=== PATIENT | female | born 2005 | race Two or more races ===

== ENCOUNTER 2024-09-12 01:26 | Emergency (ER) | payer MEDICAID, SELFPAY ==
[2024-09-12 01:27] VITALS: BMI 36.0
[2024-09-12 01:37] VITALS: BP 136/83; PULSE 93; RESP 17; TEMP 37.1; O2SAT 99
--- NOTE | 2024-09-12 01:54 | XR_ITS ---
Examination: PA chest single view TECHNIQUE: Upright PA chest single view Exam date and time: September 12, 2024 0214 hours INDICATIONS: Coughing 5 days. FINDINGS: Early pneumonia left upper lobe. Normal heart size Right lung clear IMPRESSION: Early pneumonia left upper lobe
--- NOTE | 2024-09-12 02:29 | EDNOTE_ITS ---
Upper Respiratory Inf. RME/HPI General Chief Complaint: Flu Like Symptoms Stated Complaint: COUGH, CONGESTION AND VOMITING Time Seen by Provider: 09/12/24 01:53 Arrival date/time: 09/12/24 01:26 18F with no significant PMH presents to ED with 4 days of cough, nasal congestion, and some N/V from coughing so much, particularly when she wakes up. Limitations: no limitations Related Data Home Medications ?Medication ?Instructions ?Recorded ?Confirmed vits no.124-ferrous fum 1 tab PO DAILY 03/01/23 27 mg iron-folic acid 800 mcg tablet ( Vitamin) Previous Rx's ?Medication ?Instructions ?Recorded acetaminophen 300 mg-codeine 15 mg 1 tab PO Q12H PRN p ain #14 tabs 03/04/23 tablet acetaminophen 500 mg tablet 500 mg PO Q6H PRN fever or pain 03/04/23 #20 tabs docusate sodium 100 mg capsule 100 mg PO QDAY #30 caps 03/04/23 (Laxa Basic) ibuprofen 800 mg tablet 800 mg PO Q8H PRN pain #30 t abs 03/04/23 Allergies Allergy/AdvReac Type Severity Reaction Status Date / Time No Known Allergies Allergy Verified 09/02/23 23:16 Review of Systems Review of Systems Systems Reviewed: All systems reviewed, normal except as documented Constitutional Constitutional: Reports system reviewed and no additional complaints, except as documented, Denies fever(s) and Denies headache(s) ENT Ears, Nose, Mouth, and Throat: Reports as per HPI, Denies disequilibrium, Denies headache(s) and Reports nasal congestion Cardiovascular Cardiovascular: Reports system reviewed and no additional complaints, except as documented, Denies chest pain and Denies dyspnea Respiratory Respiratory: Reports system reviewed and no additional complaints, except as documented, Reports as per HPI, Reports cough and Denies dyspnea Gastrointestinal Gastrointestinal: Reports system reviewed and no additional complaints, except as documented, Reports as per HPI, Denies abdominal pain, Reports nausea and Reports vomiting Neurologic Neurologic: Reports system reviewed and no additional complaints, except as documented, Denies confusion, Denies disequilibrium and Denies headache(s) Psychiatric Psychiatric: Denies confusion Past Medical History Past Medical History NEUROLOGIC: Negative Neurological Disorders or Seizures CARDIAC: Negative Cardiac Disorders or Congestive Heart Failure RESPIRATORY: Positive Asthma (SEASONAL ASTHMA, USES ALBUTEROL INHALOR Q 1 MO.); Negative Chronic Obstructive Pulmonary Disease (COPD) GASTROINTESTINAL: Negative Gastrointestinal Disorders or Hepatitis GENITOURINARY: Negative Genitourinary Disorders or Renal Disease REPRODUCTIVE: Negative Endometriosis, Genital Herpes, Gonorrhea, Pelvic Inflammatory Disease, Previous Pregnancies, Syphilis or Uterine Prolapse MUSCULOSKELETAL: Negative Musculoskeletal Disorders ENDOCRINE: Positive Endocrine Disorders; Negative Diabetes Mellitus Type 1 or Diabetes Mellitus Type 2 HEMATOLOGIC: Positive Blood Disorders and Anemia (HX OF ANEMIA, NOT CURRENT.); Negative Sickle Cell Disease OTHER HISTORY: Positive Hospitalization; Negative Autoimmune Disease, Down Syndrome, Developmental Delay, Shingles, Falls, Blood Transfusions, Blood Transfusion Reaction, Anesthesia Reactions, Organ Transplant, Chemotherapy, Radiation Therapy, Hyperbaric Therapy, MRSA, VRSA, Vancomycin-Resistant Enterococci, Human Immunodeficiency Virus (HIV), Chicken Pox, Measles, Mumps, Rubella (Persian Measles), Pertussis, Clostridium Difficile or Cancer Family History FAMILY HISTORY: Positive Family Cardiac Disorders (FATHER- HEART PROBLEMS. MOTHER- HTN); Negative Family Psychiatric Problems, Family Respiratory Disorders, Family Gastrointestinal Problems, Family Cancer, Family Surgery or Family Anesthesia Reaction Surgical History SURGICAL: Positive Abdominal Surgery; Negative Section or Organ Transplant Social History SMOKING STATUS: Never smoker SECOND HAND EXPOSURE: No SUBSTANCE USE: does not use ED Exam General Limitations: Present no limitations General appearance: Present alert and in no apparent distress Head Head exam: Present atraumatic Eye Eye exam: Present normal appearance, PERRL and EOMI ENT ENT exam: Present normal exam, normal oropharynx and mucous membranes moist Neck Neck exam: Present normal inspection, full ROM and trachea midline Chest Chest inspection: Present normal inspection and symmetric chest wall rise Respiratory Respiratory exam: Present normal lung sounds bilaterally Cardiovascular Cardiovascular exam: Present regular rate, normal rhythm and normal heart sounds Abdominal Exam Abdominal exam: Present soft and normal bowel sounds Extremities Exam Extremities exam: Present normal inspection and full ROM Back Exam Back exam: Present normal inspection and full ROM Neurological Exam Neurological exam: Present alert, oriented X3 and CN II-XII intact Psychiatric Psychiatric exam: Present normal affect and normal mood Skin Skin exam: Present warm, dry, intact and normal color Course Quality Measures none Orders Category Date Time Status Bedside Influenza A&B Antigen Test NOW Care 09/12/24 01:54 Completed XR chest 1V portable Stat Exams 09/12/24 01:54 Taken Vital Signs Vital signs: Vital Signs Temperature 98.8 F 09/12/24 01:37 Pulse Rate 93 09/12/24 01:37 Respiratory Rate 17 09/12/24 01:37 Blood Pressure 136/83 H 09/12/24 01:37 Pulse Oximetry (%) 99 09/12/24 01:37 Oxygen Delivery Method Room Air 09/12/24 01:37 O2 at 99% on RA and WNLs Upper Respiratory Infection MDM Narrative MDM Narrative:: 18F with no significant PMH presents to ED with 4 days of cough, nasal c ongestion, and some N/V from coughing so much, particularly when she wakes up. Physical exam reveals clear ENT and lungs. Patient is afebrile, calm, and alert. Swabs neg. Wet CXR read no PNA pending official report. Product Support Analyst given. Patient data External records reviewed:: [facility] previous records Clinical information provided by:: patient Social determinants that could affect healthcare access:: none Patient has the following chronic illnesses:: none How is presenting disease/condition affected by chronic disease/condition?: no chronic disease Evaluation data The following diagnostics were reviewed and interpreted by me:: lab results and radiology exam(s) Lab and/or radiology exams considered but not ordered:: ordered Interpretation Summary: above Medications / Prescriptions Medications or Prescriptions considered but not ordered:: not ordered Medication administrations:: n/a Consultations Consultation(s) initiated? (list below): No Diagnosis Upper Respiratory Differential Diagnosis: upper respiratory infection, croup, otitis media, sinusitis, viral infection, bronchitis, influenza, pharyngitis and other (CAP, respiratory infection) Most likely diagnosis given after review of the tests above:: respiratory infection Admission Indicated Admission indicated?: not indicated Admission Request Was there a request for admission?: No Disposition Plan Disposition Plan: Discharge Discharge Attestation Discharge Attestation: The patient and all family members were given an opportunity to ask questions and understood the discharge instructions. Discharge instructions specifically effects, indications for sooner follow up or return to the emergency department, and the expected course of current diagnosis. Patient condition: Stable Discharge Plan Plan Patient Disposition: HOME (Self Care) Discharge Disposition comment: Stable Prescriptions/Referrals Prescriptions/Med Rec: No Action Vitamin 27 mg iron- 800 mcg Tablet 1 tab PO DAILY acetaminophen-codeine 300-15 mg tablet 1 tab PO Q12H PRN (Reason: pain) Qty: 14 0RF ibuprofen 800 mg tablet 800 mg PO Q8H PRN (Reason: pain) Qty: 30 0RF acetaminophen 500 mg tablet 500 mg PO Q6H PRN (Reason: fever or pain) Qty: 20 0RF docusate sodium [Laxa Basic] 100 mg capsule 100 mg PO QDAY Qty: 30 0RF Problem List Clinical Impression: Acute respiratory infection Patient/Caregiver Discharge Instructions Education Materials: ED URI, Viral, No Abx (Adult) Additional Instructions: Please follow-up with PCP within 24-48 hours and return immediately if symptoms worsen. Ibuprofen/Tylenol can be used simultaneously for greater fever/pain control. Benadryl is good for cough, congestion, and sleep. Print Language: Yoruba Stand Alone Forms: Patient Portal Info Letter PA/EDITOR MAGAZINE Supervising Physician PA/EDITOR MAGAZINE Supervising Physician: Dr. Gipson
[2024-09-12 02:49] VITALS: BP 128/72; PULSE 76; RESP 16; TEMP 36.8; O2SAT 98
== END 2024-09-12 02:50 | disposition home or self-care (01) ==
LOC: SERX 02:44
PROVIDERS: Emergency Provider Emergency Medicine
DX: J98.8 Other specified respiratory disorders (principal)
CPT/HCPCS: 71045; 87400; 99283

== ENCOUNTER 2024-10-02 05:37 | Emergency (ER) | payer MEDICAID, SELFPAY ==
[2024-10-02 05:39] VITALS: BMI 36.0
[2024-10-02 06:08] VITALS: BP 123/77; PULSE 87; RESP 17; TEMP 37; O2SAT 99
--- NOTE | 2024-10-02 06:18 | EDNOTE_ITS ---
<Statement entered by Elena Sheets MD - 10/02/24 06:33> As co-signing physician, I was present and available for consult prn. I concur with the plan and care as documented by the midlevel provider. ED Ear RME/HPI General Chief complaint: Ear Stated complaint: EAR PAIN Time Seen by Provider: 10/02/24 06:16 Source: patient Arrival date/time: 10/02/24 05:37 18-year-old female with no known medical history presents to the emergency room with a chief complaint of left-sided ear pain and drainage x 2 days Mode of arrival: ambulatory Limitations: no limitations Related Data Home Medications ?Medication ?Instructions ?Recorded ?Confirmed vits no.124-ferrous fum 1 tab PO DAILY 03/01/23 27 mg iron-folic acid 800 mcg tablet ( Vitamin) Previous Rx's ?Medication ?Instructions ?Recorded acetaminophen 300 mg-codeine 15 mg 1 tab PO Q12H PRN p ain #14 tabs 03/04/23 tablet acetaminophen 500 mg tablet 500 mg PO Q6H PRN fever or pain 03/04/23 #20 tabs docusate sodium 100 mg capsule 100 mg PO QDAY #30 caps 03/04/23 (Laxa Basic) ibuprofen 800 mg tablet 800 mg PO Q8H PRN pain #30 t abs 03/04/23 amoxicillin 875 mg-potassium 1 tab PO BID 7 days #14 t abs 10/02/24 clavulanate 125 mg tablet ofloxacin 0.3 % ear drops 5 drp otic (ear) QDAY 7 days #5 mL 10/02/24 Allergies Allergy/AdvReac Type Severity Reaction Status Date / Time No Known Allergies Allergy Verified 10/02/24 05:43 Review of Systems Review of Systems Systems Reviewed: All systems reviewed, normal except as documented Constitutional Constitutional: Reports system reviewed and no additional complaints, except as documented, Denies fatigue, Denies fever(s), Denies headache(s) and Denies weakness Eyes Eyes: Reports system reviewed and no additional complaints, except as documented, Denies blurry vision and Denies change in vision ENT Ears, Nose, Mouth, and Throat: Reports system reviewed and no additional complaints, except as documented, Reports ear discharge, Reports otalgia, Denies headache(s), Denies nasal congestion, Denies throat swelling and Denies vertigo Cardiovascular Cardiovascular: Reports system reviewed and no additional complaints, except as documented, Denies chest pain, Denies dyspnea and Denies dyspnea on exertion Respiratory Respiratory: Reports system reviewed and no additional complaints, except as documented, Denies chest congestion, Denies cough, Denies dyspnea, Denies dyspnea on exertion and Denies wheezing Gastrointestinal Gastrointestinal: Reports system reviewed and no additional complaints, except as documented, Denies abdominal pain, Denies cramping, Denies nausea and Denies vomiting Genitourinary Genitourinary: Reports system reviewed and no additional complaints, except as documented Musculoskeletal Musculoskeletal: Reports system reviewed and no additional complaints, except as documented and Denies back pain Integumentary/Breasts Skin/Breast: Reports system reviewed and no additional complaints, except as documented and Denies wounds Neurologic Neurologic: Reports system reviewed and no additional complaints, except as documented, Denies confusion, Denies headache(s), Denies lack of coordination, Denies vertigo and Denies weakness Psychiatric Psychiatric: Reports system reviewed and no additional complaints, except as documented, Denies anxiety, Denies confusion, Denies depression, Denies paranoia, Denies suicidal ideation and Denies tactile hallucinations Endocrine Endocrine: Reports system reviewed and no additional complaints, except as documented and Denies fatigue Hematologic/Lymphatic Hematologic/Lymphatic: Reports system reviewed and no additional complaints, except as documented and Denies lymphadenopathy Allergic/Immunologic Allergic/Immunologic: Reports system reviewed and no additional complaints, except as documented, Denies throat swelling, Denies urticaria and Denies wheezing Past Medical History Past Medical History NEUROLOGIC: Negative Neurological Disorders or Seizures CARDIAC: Negative Cardiac Disorders or Congestive Heart Failure RESPIRATORY: Positive Asthma; Negative Chronic Obstructive Pulmonary Disease (COPD) GASTROINTESTINAL: Negative Gastrointestinal Disorders or Hepatitis GENITOURINARY: Negative Genitourinary Disorders or Renal Disease REPRODUCTIVE: Negative Endometriosis, Genital Herpes, Gonorrhea, Pelvic Inflammatory Disease, Previous Pregnancies, Syphilis or Uterine Prolapse MUSCULOSKELETAL: Negative Musculoskeletal Disorders ENDOCRINE: Positive Endocrine Disorders; Negative Diabetes Mellitus Type 1 or Diabetes Mellitus Type 2 HEMATOLOGIC: Positive Blood Disorders and Anemia; Negative Sickle Cell Disease OTHER HISTORY: Positive Hospitalization; Negative Autoimmune Disease, Down Syndrome, Developmental Delay, Shingles, Falls, Blood Transfusions, Blood Transfusion Reaction, Anesthesia Reactions, Organ Transplant, Chemotherapy, Radiation Therapy, Hyperbaric Therapy, MRSA, VRSA, Vancomycin-Resistant Enterococci, Human Immunodeficiency Virus (HIV), Chicken Pox, Measles, Mumps, Rubella (Albanian Measles), Pertussis, Clostridium Difficile or Cancer Family History FAMILY HISTORY: Positive Family Cardiac Disorders; Negative Family Psychiatric Problems, Family Respiratory Disorders, Family Gastrointestinal Problems, Family Cancer, Family Surgery or Family Anesthesia Reaction Surgical History SURGICAL: Positive Abdominal Surgery; Negative Section or Organ Transplant Social History SMOKING STATUS: Never smoker SECOND HAND EXPOSURE: No SUBSTANCE USE: does not use ED Exam General Limitations: Present no limitations General appearance: Present alert and in no apparent distress Head Head exam: Present atraumatic Eye Eye exam: Present normal appearance, PERRL and EOMI ENT ENT exam: Present normal exam, normal oropharynx and mucous membranes moist Expanded ENT Exam External ear exam: Present external tenderness TM/Canal exam: Left TM: erythema and bulging Neck Neck exam: Present normal inspection, full ROM and trachea midline Chest Chest inspection: Present normal inspection and symmetric chest wall rise Respiratory Respiratory exam: Present normal lung sounds bilaterally Cardiovascular Cardiovascular exam: Present regular rate, normal rhythm and normal heart sounds Abdominal Exam Abdominal exam: Present soft and normal bowel sounds Extremities Exam Extremities exam: Present normal inspection and full ROM Back Exam Back exam: Present normal inspection and full ROM Neurological Exam Neurological exam: Present alert, oriented X3 and CN II-XII intact Psychiatric Psychiatric exam: Present normal affect and normal mood Skin Skin exam: Present warm, dry, intact and normal color Course Quality Measures none Vital Signs Vital signs: Vital Signs Temperature 98.6 F 10/02/24 06:08 Pulse Rate 87 10/02/24 06:08 Respiratory Rate 17 10/02/24 06:08 Blood Pressure 123/77 10/02/24 06:08 Pulse Oximetry (%) 99 10/02/24 06:08 Oxygen Delivery Method Room Air 10/02/24 06:08 O2 saturation 99% within normal limits Ear MDM Narrative MDM Narrative:: 18-year-old female with no known medical history presents to the emergency room with a chief complaint of left-sided ear pain and drainage x 2 days Patient is hemodynamically stable and in no apparent distress Physical examination shows an erythemic bulging left-sided tympanic membrane. There is also external ear canal tenderness and you can see dried discharge in the ear canal. Findings are consistent with otitis media and otitis externa. Antibiotics are sent to the patient's pharmacy Patient was discharged and educated to follow-up with primary care provider in the next 24 to 48 hours and return to the emergency room for any evidence of worsening signs or symptoms Patient data External records reviewed:: [facility] previous records Clinical information provided by:: patient Social determinants that could affect healthcare access:: none Patient has the following chronic illnesses:: No chronic illness How is presenting disease/condition affected by chronic disease/condition?: no chronic disease Evaluation data The following diagnostics were reviewed and interpreted by me:: lab results and radiology exam(s) Lab and/or radiology exams considered but not ordered:: Labs and radiology exams considered and ordered Interpretation Summary: N/A Medications / Prescriptions Medications or Prescriptions considered but not ordered:: Rx given Medication administrations:: Rx given Consultations Consultation(s) initiated? (list below): No Diagnosis Ear Differential Diagnosis: otitis externa, otitis media and ruptured TM Most likely diagnosis given after review of the tests above:: Otitis media Admission Indicated Admission indicated?: not indicated Admission Request Was there a request for admission?: No Disposition Plan Disposition Plan: Discharge Discharge Attestation Discharge Attestation: The patient and all family members were given an opportunity to ask questions and understood the discharge instructions. Discharge instructions specifically effects, indications for sooner follow up or return to the emergency department, and the expected course of current diagnosis. Patient condition: Stable Discharge Plan Plan Patient Disposition: HOME (Self Care) Discharge Disposition comment: stable Prescriptions/Referrals Prescriptions/Med Rec: New amoxicillin-pot clavulanate 875-125 mg tablet 1 tab PO BID 7 Days Qty: 14 0RF ofloxacin 0.3 % drops 5 drp otic (ear) QDAY 7 Days Qty: 5 0RF No Action Vitamin 27 mg iron- 800 mcg Tablet 1 tab PO DAILY acetaminophen-codeine 300-15 mg tablet 1 tab PO Q12H PRN (Reason: pain) Qty: 14 0RF ibuprofen 800 mg tablet 800 mg PO Q8H PRN (Reason: pain) Qty: 30 0RF acetaminophen 500 mg tablet 500 mg PO Q6H PRN (Reason: fever or pain) Qty: 20 0RF docusate sodium [Laxa Basic] 100 mg capsule 100 mg PO QDAY Qty: 30 0RF Problem List Clinical Impression: Otitis media Patient/Caregiver Discharge Instructions Education Materials: ED Otitis Media Antibiotic ... Additional Instructions: Please follow-up with your primary care provider in the next 24 to 48 hours Antibiotics are sent to your pharmacy please pick them up and take them as indicated For any evidence of worsening signs or symptoms return to the emergency room immediately Print Language: Georgian Stand Alone Forms: [employer] Award Info., Work/School Release, Patient Portal Info Letter PA/REPORT MANAGER Supervising Physician PA/REPORT MANAGER Supervising Physician: Dr. SHEETS
== END 2024-10-02 06:30 | disposition home or self-care (01) ==
LOC: SERX 06:28
PROVIDERS: Emergency Provider Emergency Medicine; PCP Family Medicine
DX: H66.92 Otitis media, unspecified, left ear (principal)
CPT/HCPCS: 99281

== ENCOUNTER 2025-02-18 21:48 | Emergency (ER) | payer MEDICAID, SELFPAY ==
[2025-02-18 21:50] VITALS: BMI 39.1
[2025-02-18 22:01] VITALS: BP 124/82; PULSE 86; RESP 20; TEMP 36.7; O2SAT 98
--- NOTE | 2025-02-18 22:02 | XR_ITS ---
Examination: CT brain head without contrast. 2-D sagittal coronal reconstructions Date and time of exam: February 18, 2025, 11:17 p.m. INDICATIONS: Head pressure nausea and dizziness beginning 3 days ago CTDI: vol (mGy): 54.20 DLP: (mGycm): 1046 Technique: Multiple CT axial sections of the brain have been obtained, 5 mm slice thickness. Contrast has not been administered. 2-D sagittal, coronal reconstructions have been obtained Low dose protocols were performed. One or more of the following dose reduction techniques were used; automated exposure control, adjustment of the mA and/or KV according to patient size, use of iterative reconstruction technique. Findings: No significant ventricular enlargement. Intra-axial or extra-axial hemorrhage density is not seen. No mass effect or midline shift Basal cisterns are not remarkable. Fourth ventricle is midline. Cranial vault intact. Chronic pansinusitis Impression: Negative for acute hemorrhage, mass effect or midline shift Advise clinical correlation and follow-up accordingly
--- NOTE | 2025-02-18 22:02 | PD.EDRME ---
Rapid Medical Screening Exam RME Arrival date/time: 02/18/25 21:48 This is a case of 19-year-old female with no medical history came into the emergency room due to dizziness headache and numbness with nausea today persistence of the symptoms this patient decided to start consult with the emergency room Chief Complaint: General Adult/Misc Complain Time Seen by Provider: 02/18/25 21:50
[2025-02-18 22:28] LABS: Basophils # (Auto) 0.1 Thou/mm3 (0.0-0.2); Basophils % (Auto) 1 % (0-2.5); Eosinophils # (Auto) 0.2 Thou/mm3 (0.0-0.5); Eosinophils % (Auto) 2 % (0-10); Hematocrit 36.5 % (36.0-46.0); Hemoglobin 11.1 g/dL (12.0-16.0); Immature Granulocytes Auto 0.02 Thou/mm3 (0.00-0.00); Lymphocytes # (Auto) 2.5 Thou/mm3 (1.0-4.8); Lymphocytes % (Auto) 28 % (10-50); Mean Corpuscular HGB Conc 30.4 g/dl (31.0-37.0); Mean Corpuscular Hemoglobin 23.2 pg (25.0-35.0); Mean Corpuscular Volume 76 fL (80-100); Monocytes # (Auto) 0.7 Thou/mm3 (0.0-0.8); Monocytes % (Auto) 8 % (0-12); Neutrophils # (Auto) 5.4 Thou/mm3 (1.8-7.7); Neutrophils % (Auto) 61 % (37-80); Nucleated Red Blood Cell # 0.00 Thou/mm3 (0.00-0.00); Nucleated Red Blood Cell % 0 /100 WBC (0); Platelet Count 332 Thou/mm3 (140-440); RDW Standard Deviation 42.1 fL (36.4-46.3); Red Blood Count 4.79 Miln/mm3 (4.00-5.20); White Blood Count 8.9 Thou/mm3 (3.6-11.0)
--- NOTE | 2025-02-18 22:49 | EKG_ITS ---
[facility] Test Date: 2025-02-18 Pat Name: RICH MEANS Department: Room: - Gender: Female Art Consultant: : 2005 Requested By: Fahad Lao Order Number: [id number] Reading MD: Fahad Lao Measurements Intervals [place] Rate: 76 P: 30 [place]: 133 QRS: 72 QRSD: 90 T: 41 QT: 349 QTc: 393 Interpretive Statements SINUS RHYTHM No previous ECG available for comparison /store/S0/[id number]
[2025-02-18 22:50] LABS: HCG,Qualitative Serum Negative
[2025-02-18 22:55] VITALS: BP 126/64; PULSE 86; RESP 23; TEMP 36.9; O2SAT 99
[2025-02-18 22:58] LABS: Alanine Aminotransferase 10 U/L (10-49); Albumin, Serum 4.6 gm/dL (3.5-5.0); Albumin/Globulin Ratio 1.8 (1.2-2.2); Alkaline Phosphatase 58 U/L (46-116); Anion Gap 9 (7-16); Aspartate Amino Transferase 13 U/L (0-34); BUN/Creatinine Ratio 16 Ratio (12-20); Bilirubin,Total 0.3 mg/dL (0.3-1.2); Blood Urea Nitrogen 11 mg/dL (9-23); Calcium 9.2 mg/dL (8.3-10.6); Calcium (Corrected) 9.2 mg/dL (8.5-10.1); Carbon Dioxide 27.7 mMol/L (20.0-31.0); Chloride 106 mMol/L (98-107); Creatinine (Component) 0.7 mg/dL (0.6-1.3); Estimated Creatinine Clearance 165.2 mL/min (>60); Globulin 2.5 gm/dL (2.3-3.5); Glucose 93 mg/dL (74-106); Osmolality,Calculated 284 (275-295); Potassium 4.1 mMol/L (3.4-5.1); Sodium 143 mMol/L (136-145); Total Protein 7.1 gm/dL (5.7-8.2); eGFR > 60 See Note
--- NOTE | 2025-02-18 23:46 | PD.EDHA ---
ED Headache RME/HPI General Chief Complaint: General Adult/Misc Complain Stated Complaint: DIZZY,HEAD PRESSURE, NAUSEA Time Seen by Provider: 02/18/25 21:50 Arrival date/time: 02/18/25 21:48 RME / HPI RME / HPI Narrative: 02/18/25 21:48 This is a case of 19-year-old female with no medical history came into the emergency r DR. NEAL MAIN ED EVALUATION: Patient presents with new onset occipital BL posterior parietal ZAMORA pressure-like sensation today constant in nature with nausea, lightheadedness, and blurred vision. Also noted LUE/LLE parasthesias. Nausea without emesis, no change with exertion. PMH: DM on Ozempic PSH: Appendectomy, Allergies: None reported Social: Non-drinker, Non-smoker, No illicit drug abuse MD Complaint: headache Location: occipital Quality: constant Exacerbating factors: none Associated symptoms: nausea Related Data Home Medications ?Medication ?Instructions ?Recorded ?Confirmed vits no.124-ferrous fum 1 tab PO DAILY 02/28/23 03/01/23 27 mg iron-folic acid 800 mcg tablet ( Vitamin) Previous Rx's ?Medication ?Instructions ?Recorded acetaminophen 300 mg-codeine 15 mg 1 tab PO Q12H PRN pain #14 tabs 03/04/23 tablet acetaminophen 500 mg tablet 500 mg PO Q6H PRN fever or pain 03/04/23 #20 tabs docusate sodium 100 mg capsule 100 mg PO QDAY #30 caps 03/04/23 (Laxa Basic) ibuprofen 800 mg tablet 800 mg PO Q8H PRN pain #30 tabs 03/04/23 promethazine 12.5 mg tablet 12.5 mg PO TID PRN nausea and 02/19/25 vomiting #20 tabs Allergies Allergy/AdvReac Type Severity Reaction Status Date / Time No Known Allergies Allergy Verified 10/02/24 05:43 Review of Systems Review of Systems Systems Reviewed: All systems reviewed, normal except as documented Past Medical History Past Medical History RESPIRATORY: Positive Asthma ENDOCRINE: Positive Endocrine Disorders and Diabetes Mellitus Type 2 HEMATOLOGIC: Positive Anemia OTHER HISTORY: Positive Hospitalization Family History FAMILY HISTORY: Positive Family Cardiac Disorders Surgical History SURGICAL: Positive Abdominal Surgery ED Exam Narrative Physical exam: GEN. APPEARANCE: The patient is alert awake oriented X-3 under mild distress c/o mild intensity ZAMORA, lying down comfortably, does not look ill/toxic. Patient has good eye contact. Patient is cooperative. VITALS: All vitals were reviewed and the pulse ox is 99%, which is normal according to my interpretation HEENT: Normocephalic, atraumatic, noted alodynia and tender occipital notch BL. Pupils are equal and reactive; fundoscopic exam normal. Oral mucosa is moist. NECK: Supple, nontender, no meningismus, no JVD. There is no thyromegaly and no lymphadenopathy. CHEST: Nontender on palpation no deformity and no crepitus. CARDIOVASCULAR: Heart regular rhythm, no murmur or gallop rub or extra beats. LUNGS: Clear to auscultation bilaterally with symmetrical chest rise. No laboring tachypnea or wheezing. No intercostal subcostal retraction. No rales and no rhonchi. ABDOMEN: Soft, flat, nontender to palpation, no guarding or rebound tenderness. There are no abnormal masses palpated. No pulsatile masses or bruits. Active and normal bowel sounds. EXTREMITIES:.Normal inspection and palpation. No edema. No cyanosis. Patient is able to move all 4 extremities well SKIN: Warm and dry, no rashes noted. MUSCULOSKELETAL: No lumbar or midline bony tenderness. There is no CVA tenderness. No paraspinal muscle spasm or tenderness. NEURO: Cranial nerves II through XII grossly intact. There are no focal neurologic deficits noted. GCS is 15. Normal finger to nose, gait not observed. PSYCHIATRIC: Patient is in normal mood and affect, cooperative. LYMPHATICS: No major lymphadenopathy noted. Course Quality Measures none Orders Category Date Time Status Bedside Blood Glucose NOW Care 02/18/25 22:52 Active EKG (ED ONLY) *Do not use* NOW Care 02/18/25 22:[address] head/brain wo con Stat Exams 02/18/25 22:02 Completed EKG (ED Only) Stat Exams 02/18/25 22:49 Draft CBC Stat Lab 02/18/25 22:16 Completed CMP [Comprehensive Metabolic Panel] Stat Lab 02/18/25 22:16 Completed HCG,Qualitative Serum Stat Lab 02/18/25 22:16 Completed Urinalysis Stat Lab 02/19/25 01:12 Completed Urine Culture Stat Lab 02/19/25 01:12 Received Ampicillin/Sulbac Inj [Unasyn Inj] 3 gm Med 02/19/25 00:47 Discontinued Sodium Chloride 0.9% (Pop) [NS 0.9% mini bag] 100 ml IV X1 Dexamethasone Inj [Decadron Inj] 10 mg Med 02/18/25 23:53 Discontinued Sodium Chloride 0.9% [Ns] 100 ml IV X1 DiphenhydrAMINE INJ [Benadryl Inj] Med 02/18/25 23:54 Discontinued 12.5 mg IVP X1 ONE Morphine* Inj Med 02/18/25 23:54 Discontinued 4 mg IVP X1 ONE Prochlorperazine Inj [Compazine Inj] Med 02/18/25 23:53 Discontinued 5 mg IV X1 ONE Sodium Chloride 0.9% 1000 ml [Ns] 1,000 ml Med 02/18/25 23:53 Discontinued IV 999 mls/hr Vital Signs Vital signs: Vital Signs Temperature 98.1 F 02/18/25 22:01 Pulse Rate 86 02/18/25 22:01 Respiratory Rate 20 02/18/25 22:01 Blood Pressure 124/82 02/18/25 22:01 Pulse Oximetry (%) 98 02/18/25 22:01 Oxygen Delivery Method Room Air 02/18/25 22:01 Headache MDM Narrative MDM Narrative:: Scribe Attestation: Joslyn Garcia, am scribing for and in the presence of Dr. Neal. Provider Notation: Although this document has been carefully reviewed, there may still be some phonetic and other typographical errors. These errors are purely grammatical due to imperfections in the software program and should not be construed in any way to compromise the substance of the patient's medical care during this visit. Patient presents with new onset occipital BL posterior parietal ZAMORA pressure-like sensation today constant in nature with nausea, lightheadedness, and blurred vision. Also noted LUE/LLE parasthesias. Please see PE findings. Laboratory markers including CBC and serum chemistries demonstrate normal WBC of 8.9, hemoglobin of 11, and platelet count of 33. No left shift or bandemia. Serum chemistries essentially normal. test negative. UA with equivocal infection. Patient placed on cardiac surgeon, IV established, administered low-dose narcotic analgesics, IV steroids, and phenothiazines with marked improvement. Head and brain CT failed to demonstrate acute intracranial process. Upon serial evaluation, patient resting comfortably, neurologically intact, and reported headache resolved. Patient remained neurologically intact throughout ED course, and considered stable for discharge. Suspect complex migraine headache and after extended period of observation, patient will be discharged home. Patient data External records reviewed:: [facility] previous records (Reviewed prior ED records from 10/02/24. Patient was seen for Otitis media.) Clinical information provided by:: patient Social determinants that could affect healthcare access:: none Patient has the following chronic illnesses:: Type II DM, Asthma, Anemia How is presenting disease/condition affected by chronic disease/condition?: exacerbated by Evaluation data The following diagnostics were reviewed and interpreted by me:: lab results, radiology exam(s) and EKG tracing(s) (EKG at 22:59 shows normal sinus rhythm at 76, normal axis, no ectopy, no signs of acute ischemia, per my interpretation.) Lab and/or radiology exams considered but not ordered:: None Interpretation Summary: RADIOLOGY Head/Brain CT: Findings: No significant ventricular enlargement. Intra-axial or extra-axial hemorrhage density is not seen. No mass effect or midline shift Basal cisterns are not remarkable. Fourth ventricle is midline. Cranial vault intact. Chronic pansinusitis Impression: Negative for acute hemorrhage, mass effect or midline shift Advise clinical correlation and follow-up accordingly Medications / Prescriptions Medications or Prescriptions considered but not ordered:: None Medication administrations:: Medication Administration History Discontinued Medications Diphenhydramine HCl (Diphenhydramine Inj 50 Mg/Ml Vial) 12.5 mg IVP X1 ONE Stop: 02/18/25 23:55 Last Admin: 02/19/25 00:05 Dose: 12.5 mg Documented By: ALAINA Sodium Chloride (Ns) 1,000 mls @ 999 mls/hr IV .Q1H1M ONE Stop: 02/19/25 00:53 Last Infusion: 02/19/25 01:20 Dose: Infused Documented By: Admin: 02/19/25 00:07 Dose: 999 mls/hr Documented By: ALAINA Dexamethasone Sodium Phosphate (10 mg/ Sodium Chloride) 101 mls @ 101 mls/hr IV X1 ONE Stop: 02/18/25 23:54 Last Infusion: 02/19/25 01:03 Dose: Infused Documented By: Admin: 02/19/25 00:03 Dose: 101 mls/hr Documented By: ALAINA Ampicillin Sodium/Sulbactam (Sodium 3 gm/ Sodium Chloride) 100 mls @ 200 mls/hr IV X1 ONE Stop: 02/19/25 00:48 Last Infusion: 02/19/25 01:55 Dose: Infused Documented By: Admin: 02/19/25 01:21 Dose: 200 mls/hr Documented By: ALAINA Morphine Sulfate (Morphine Sulf Inj 4 Mg/Ml Vial) 4 mg IVP X1 ONE Stop: 02/18/25 23:55 Last Admin: 02/19/25 00:03 Dose: 4 mg Documented By: ALAINA Prochlorperazine Edisylate (Prochlorperazine Inj 5 Mg/Ml Vial 2 Ml) 5 mg IV X1 ONE; Protocol Stop: 02/18/25 23:54 Last Admin: 02/19/25 00:08 Dose: 5 mg Documented By: ALAINA See above if any Consultations Consultation(s) initiated? (list below): No Diagnosis Differential diagnosis headache: migraine, tension headache, subarachnoid hemorrhage, headache and sinusitis Most likely diagnosis given after review of the tests above:: Complex migraine headache Admission Indicated Admission indicated?: not indicated Explain why admission is indicated or not indicated:: Patient does not meet admission criteria Admission Request Was there a request for admission?: No Disposition Plan Disposition Plan: Discharge Discharge Attestation Discharge Attestation: The patient and all family members were given an opportunity to ask questions and understood the discharge instructions. Discharge instructions specifically effects, indications for sooner follow up or return to the emergency department, and the expected course of current diagnosis. Patient condition: Stable Discharge Plan Plan Patient Disposition: HOME (Self Care) Prescriptions/Referrals Prescriptions/Med Rec: No Action Vitamin 27 mg iron- 800 mcg Tablet 1 tab PO DAILY acetaminophen-codeine 300-15 mg tablet 1 tab PO Q12H PRN (Reason: pain) Qty: 14 0RF ibuprofen 800 mg tablet 800 mg PO Q8H PRN (Reason: pain) Qty: 30 0RF acetaminophen 500 mg tablet 500 mg PO Q6H PRN (Reason: fever or pain) Qty: 20 0RF docusate sodium [Laxa Basic] 100 mg capsule 100 mg PO QDAY Qty: 30 0RF Referrals: Jasvir Yañez MD [Primary Care Provider, Family Practice] - In 1 week Problem List Clinical Impression: Migraine headache Patient/Caregiver Discharge Instructions Print Language: Israeli Stand Alone Forms: [place] Award Info., Patient Portal Info Letter
[2025-02-19] MEDS: DEXAMETHASONE INJ 10 MG in SODIUM CHLORIDE 0.9% 100 ML 101 MG IV (00:03)
[2025-02-19] MEDS: MORPHINE SULF INJ 4 MG/ML VIAL IVP (00:03)
[2025-02-19] MEDS: SODIUM CHLORIDE 0.9% 1000 ML 1,000 ML 999 ML IV (00:07)
[2025-02-19] MEDS: PROCHLORPERAZINE INJ 5 MG/ML VIAL 2 ML IV (00:08)
[2025-02-19 01:18] LABS: Collection Type, Urine Clean Catch
[2025-02-19] MEDS: AMPICILLIN/SULBAC INJ 3 GM in SODIUM CHLORIDE 0.9% (POP) 100 ML IV (01:21)
[2025-02-19 01:31] VITALS: BP 126/64; PULSE 66; RESP 14; TEMP 36.9; O2SAT 97
[2025-02-19 01:42] LABS: Bacteria,Urine Rare; Bilirubin,Urine Negative (Negative); Blood,Urine Negative (Negative); Clarity,Urine Clear (Clear/Hazy); Color,Urine Lt-Yellow (Lt Yel-Yel); Glucose, Urine Negative (Negative); Ketones,Urine Negative (Negative); Leukocyte Esterase,Urine Positive (Negative); Nitrite,Urine Negative (Negative); PH,Urine 6.5 (5.0-7.0); Protein,Urine Negative (Neg - Trace); RBC,Urine 1 /hpf (0-3); Specific Gravity,Urine 1.020 (1.001-1.035); Squamous Epithelial Cell,Urine 5 /hpf (0-5); Urobilinogen,Urine Negative mg/dL (0.0-1.0); WBC,Urine 10 /hpf (0-5)
[2025-02-19 02:36] VITALS: BP 132/80; PULSE 81; RESP 16; TEMP 36.4; O2SAT 96
[2025-02-19 02:47] VITALS: BP 132/80; PULSE 87; RESP 16; O2SAT 96
== END 2025-02-19 02:49 | disposition home or self-care (01) ==
PROVIDERS: Nurse Practitioner Family; Emergency Provider Emergency Medicine; PCP Family Medicine
DX: G43.909 Migraine, unspecified, not intractable, without status migrainosus (principal); C83.70 Burkitt lymphoma, unspecified site; E11.9 Type 2 diabetes mellitus without complications
CPT/HCPCS: 36415; 70450; 80053; 81001; 84703; 85025; 87077; 87086; 87186; 93005; 96365; 96366; 96375; 99283; J0295; J0780; J1100; J1200; J2270; J7030; J7050